=== PATIENT | male | born 1965 | race Caucasian/White ===

== ENCOUNTER 2025-02-25 07:31 | Observation (INO) ==
--- NOTE | 2025-02-25 08:31 | History & Physical Bridge Note ---
Date of Service February 25, 2025 History & Physical Bridge Note I have examined the patient, reviewed the History & Physical and in the interval since the performance of the History & Physical I have noted the following changes of clinical significance: no changes noted
--- NOTE | 2025-02-25 08:36 | Pre Anesthesia Assessment ---
Date of Service February 25, 2025 Pre Sedation Assessment Vital Signs Temp Resp O2 Del Method 02/25/25 07:39 36.7 C 18 Room Air Cardiovascular + regular rate and + bradycardic + S1 normal and + S2 normal; no murmur + femoral pulses present and + radial pulses present; no JVD and no carotid bruit no edema Respiratory + respiratory effort normal; no respiratory distress no crackles, no rales, no rhonchi and no wheezes Pre-Sedation Airway Assessment Smoking Status: Never smoker Hx Sleep Apnea: Yes Short, Thick Neck: No Thyromental Distance: > or= 3.5 Finger Breadths Oral Cavity: + WNL Mallampati Class: III ASA: ASA3 NPO Status Date of Last Intake of Fluids: 02/25/25 Time of Last Intake of Fluids: 05:00 Date of Last Intake of Solid Food: 02/24/25 Time of Last Intake of Solid Foods: 17:00 Procedure Planning Contraindications for Sedation: none Current Medications Reviewed: Yes Notes The planned sedation has been discussed with the patient. Informed Consent was obtained. I have identified the patient, determined the appropriateness of sedation and have assessed the patient immediately prior to the procedure. All medicine(s) and interventions are by my order.
--- NOTE | 2025-02-25 10:02 | Post Anesthesia Assessment ---
Date of Service February 25, 2025 Post Sedation Assessment Vital Signs Temp Resp O2 Del Method 02/25/25 07:39 36.7 C 18 Room Air Recovery Score Activity: Moves 4 extremities Respiration: Deep Breath/Cough Circulation: +/-20% PreAnes Value Consciousness: Fully Awake Oxygen Saturation: > 92% On Room Air Discharge Sedation Level of Care: Fast Track Phase II Post Sedation Plan On clinical assessment, the patient appears to have tolerated the sedation without complications. Patient is recovering as anticipated. Patient will continue to be monitored by nursing and may be discharged when sedation discharge criteria are met per below protocol. Upon Completions of procedure up to 15 minutes continue every 5 minute vital signs and the P.A.R. score; then discharge to a Phase I or Fast Track to Phase II per the following guidelines: * Discharge Patient to appropriate Phase II area if PAR is 8 or greater or return to pre- procedure baseline. The post - procedure orders will be as directed. * If PAR score is less than 8 or not return to pre-procedure baseline then patient will follow Phase I monitoring till PAR is reached for Phase II. The Phase I may be done in procedure room or may call to secure a Phase I area. * If naloxone or flumazenil are used for reversal, hold in Phase I for continued monitoring from when last reversal dose was given for a minimum of 60 minutes or longer pending the nurse and/or physician discretion of patient condition before discharge to Phase II. Please call the Sedation Physician to re-evaluate and complete post-note for discharge to Phase II area. Do NOT discharge from procedure sedation or Phase 1 until post- sedation evaluation note is complete by procedure /sedation MD Sedation Discharge Instructions to be given to the patient at discharge to home.
--- NOTE | 2025-02-25 10:06 | Cardiac Catheterization ---
Cardiac Cath Procedure Full Procedure Date February 25, 2025 Pre-Procedure Diagnosis Pre-Procedure Diagnosis: Angina and Positive Stress Test AUC Score AUC Score: 7 Post-Procedure Diagnosis Post-Procedure Diagnosis: Severe CAD and Elevated Intracardiac Pressures (LVEDP 17mmHg) Procedure(s) Performed Procedure(s) Performed: Coronary Angiography and Left Heart Cath Psychiatric Np Uriel Mendenhall DO Computer Designer(s) Donis RT Estimated Blood Loss Estimated Blood Loss: 8cc Medication(s) Medication(s): Fentanyl, Lidocaine 1%, Nicardipine, Nitroglycerin and Versed Summary of Findings 40% proximal LAD 60-70% mid LAD 99% mid RCA with THAO 2 flow, right to right and left to right collaterals Hemodynamics Rest Ao:: 103/59/99 Final Ao: 112/62/83 LV: 108/4/17 Recommendations Recommendations: Management Recommendatons (IFR, FFR, and or IVUS evaluation of LAD. Interventional cardiology recommends medical management of RCA stenosis. Refer to tertiary care for PCI of [employer] RCA.) Radiation Exposure (mGy) 1132 Contrast (mls) 40 Fluids (cc crystalloids) Fluids (cc crystalloids): 500cc pre-cath Drains Drains: N/A Anesthesia Moderate sedation. Start 0910. End 0951. Sedation monitor: Maik LEUNG Procedural Complication(s) None Disposition Patient remained in [facility] for further evaluation of LAD stenosis. I attest to the content of the Intraoperative Record and any orders documented therein. Any exceptions are noted below. ACC Data: [facility] Cardiac Status Clinical evaluation leading to the procedure 60-year-old male presents for outpatient exercise stress echo with evidence of inferior ischemia. Reporting chest discomfort on daily basis. CAD Presenation: Positive Stress Test Anginal Classification: CCS II Heart Failure: No Stress Studies Past 6 Months: Yes Stress Echocardiogram: Yes - Positive and Risk/Extent of Ischemia (High) Coronary Anatomy Dominant: Co-Dominant Left Main (% Stenosis): Normal LAD (% Stenosis): Proximal (40% (IFR 0.97) moderate calcification) and Mid (60- 70%, moderate calcification) D1 (% Stenosis): Normal (small vessel) D2 (% Stenosis): Normal (small vessel) Circumflex (% Stenosis): Proximal (10%) and Distal (Supplies [id number] collaterals) OM1 (% Stenosis): Normal (small vessel) OM2 (% Stenosis): Normal L PL1 (% Stenosis): Proximal (10%) L PL2 (% Stenosis): Normal (small vessel) L PDA (% Stenosis): Normal (Diminutive (1mm)vessel) RCA (% Stenosis): Mid (99% with THAO 2 flow, followed by 50% late-mid stenosis) R PDA (% Stenosis): Normal (THAO 2 flow) R PL1 (% Stenosis): Normal (THAO 2 flow) AM (% Stenosis): Normal (Supplies right to right collaterals) Diagnostic Physicians Name: Uriel Mendenhall DO Closure Device Percutaneous Entry Location: Radial (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 Femoral access with 5F sheath obtained.) Recommendations: Management Recommendatons (IFR, FFR, and or IVUS evaluation of LAD. Interventional cardiology recommends medical management of RCA stenosis. Refer to tertiary care for PCI of [employer] RCA.) Intraprocedure Events Significant Disection: No Perforation: No
[2025-02-25] MEDS: MIDAZOLAM HCL 1 MG/ML 2ML VIAL ONE ×2 (11:00→11:01)
[2025-02-25] MEDS: HEPARIN (PORCINE) 1000 UNIT/ML 10 ML (CATH LAB USE ONLY) ONE ×2 (11:00→11:04)
[2025-02-25] MEDS: fentaNYL citrate PF 100 MCG/2 ML VIAL ONE (11:00)
[2025-02-25] MEDS: OPTIRAY 350 ONE (11:01)
[2025-02-25] MEDS: NITROGLYCERIN/D5W 100MCG/ML 20ML SYR ONE (11:01)
[2025-02-25] MEDS: LIDOCAINE 1% LOCAL 20 ML VIAL ONE (11:01)
[2025-02-25] MEDS: TICAGRELOR 90 MG TAB ONE (11:04)
[2025-02-25] MEDS: ISOSORBIDE MONO EXTENDED REL 30 MG TABCR PO SCH (17:24)
[2025-02-25] MEDS: TICAGRELOR 90 MG TAB PO SCH (20:49)
[2025-02-26 07:48] VITALS: TEMP 98.4; O2SAT 94
[2025-02-26] MEDS: EZETIMIBE 10 MG TAB PO SCH (08:15)
[2025-02-26] MEDS: ASPIRIN 81 MG ECTAB PO SCH (08:15)
[2025-02-26 10:46] VITALS: BP 102/44; PULSE 71; RESP 20
[2025-02-26 11:11] LABS: Calcium 8.8 mg/dl (8.6-10.3); Potassium 3.9 mmol/L (3.5-5.1)
[2025-02-26 11:16] LABS: BUN Creatinine Ratio 13.8 (10-20); Creatinine Clr Calc Pharmacy 60.5 ml/min
[2025-02-26] MEDS ORDERED: NITROGLYCERIN SL 0.4 MG/TAB TAB SL PRN (11:28)
[2025-02-26] MEDS: POTASSIUM CHLORIDE CRTAB 20 MEQ TABCR PO STA (11:40)
--- NOTE | 2025-02-26 12:36 | Cardiology Progress Note ---
Date of Service February 26, 2025 Assessment & Plan (1) Status post insertion of drug-eluting stent into left anterior descending (LAD) artery: (2) RCA occlusion: (3) Sinus bradycardia: (4) Dyslipidemia, goal LDL below 70: (5) Statin intolerance: Plan 60-year-old male presented for cardiac catheterization 02/25/2025 secondary to abnormal stress echo suggesting inferior ischemia. Moderate mid LAD stenosis assessed with IFR, however, a small dissection occurred with use of the IFR wire. Subsequently, LAD was stented with a drug-eluting stent. 99% chronic occlusion of the right coronary artery visualized with right to left and left to left collaterals. Medical management recommended by interventional cardiology during this admission. I reviewed the films with interventional cardiology at tertiary care facility, [facility]. Patient scheduled for intervention of the right coronary artery with Dr. Ortez. Continue dual antiplatelet therapy uninterrupted at this time. Statin intolerance documented. Continue Zetia. Unable to add beta-felicity therapy due to chronic resting bradycardia. Patient tolerating isosorbide monohydrate 30 mg daily. Continue at discharge. Provided with a prescription for sublingual nitroglycerin and instructed regarding appropriate use. He will to be discharged home today. Close follow-up in 2 weeks as scheduled. Admission and Anticipated Discharge Date Admission Date: February 25, 2025 Subjective 60-year-old male seen at bedside. Feeling well this morning. No recurrent chest discomfort. Blood pressure remains borderline hypotensive. Tolerating isosorbide monohydrate. Minimal headache reported. Anxious for discharge. Offers no other concerns/complaints. Repeat ECG this a.m. within normal limits. Creatinine stable at baseline of 1.52. Review of Systems Review of Systems: All systems reviewed & are unremarkable except as noted in Subjective Physical Exam Constitutional: well nourished; no acute distress Respiratory: no respiratory distress, no labored breathing and no retractions Auscultation: no crackles, no rales, no rhonchi and no wheezes Cardiovascular: Rate/Rhythm: regular rate and + bradycardic Heart Sounds: normal S1 and normal S2; no murmur Vessels: femoral pulses present and radial pulses present; no JVD and no carotid bruit Extremities: no edema Gastrointestinal (Abdomen): Inspection/Auscultation: normal bowel sounds; abdomen not distended Percussion/Palpation: abdomen soft; abdomen nontender, no guarding and abdomen not rigid Neurologic: CN's II-XI intact bilaterally and moves all extremities Psychiatric: A+Ox3, euthymic affect Results & Data Vital Signs (Past 12 Hours) Vital Signs Temp Pulse Pulse Resp BP Pulse Ox O2 Del Method 02/26/25 10:45 36.9 C 71 20 102/44 L 94 Room Air 02/26/25 07:46 36.9 C 54 L 17 111/66 94 Room Air 02/26/25 07:18 68 02/26/25 02:45 36.6 C 53 L 18 102/60 96 CPAP Laboratory Results Comprehensive Metabolic Panel 02/26/25 Range/Units 10:38 Sodium 138 (136-145) mmol/L Potassium 3.9 (3.5-5.1) mmol/L Chloride 107 (98-107) mmol/L Carbon Dioxide 26 (21-32) mmol/L BUN 21 (6-23) mg/dl Creatinine 1.52 H (0.6-1.4) mg/dl Glucose 91 (70-99(Fasting)) mg/dl Calcium 8.8 (8.6-10.3) mg/dl Intake and Output 02/25/25 02/26/25 02/26/25 22:59 06:59 14:59 Intake Total 200 / 400 200 / 400 Balance 200 / 400 200 / 400 Intake: Oral 200 / 400 200 / 400 Other: Weight 99.3 kg Weight Measurement Method Built in [facility]
--- NOTE | 2025-02-26 12:59 | Discharge Summary ---
Date of Service February 26, 2025 Admission HPI Per Admitting Provider Patient presented for cardiac catheterization secondary to abnormal stress echo demonstrating inferior ischemia and chest discomfort. 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 99% RCA occlusion Discharge Exam Constitutional well nourished; no acute distress ENMT Mallampati Class: III Respiratory normal respiratory effort; no respiratory distress, no labored breathing and no retractions Auscultation: no crackles, no rales, no rhonchi and no wheezes Cardiovascular Rate/Rhythm: regular rate and + bradycardic Heart Sounds: normal S1 and normal S2; no murmur Vessels: femoral pulses present and radial pulses present; no JVD and no carotid bruit Extremities: no edema Gastrointestinal (Abdomen) Inspection/Auscultation: normal bowel sounds; abdomen not distended Percussion/Palpation: abdomen soft; abdomen nontender, no guarding and abdomen not rigid Neurologic CN's II-XI intact bilaterally and moves all extremities Psychiatric A+Ox3, euthymic affect Discharge Data Allergies Allergy/AdvReac Type Severity Reaction Status Date / Time lisinopril Allergy Swelling Verified 02/25/25 07:49 of Lip/Tongue/Throat simvastatin Allergy Swelling Verified 02/25/25 07:49 of Lip/Tongue/Throat Procedures Performed Operation Date: 02/25/25 09:30 Actual Procedures p Cineradiography w/Routine Exam - Uriel Mendenhall DO p Cath, Left with Cors and Vent - Uriel Mendenhall DO s Drug Eluting Stent SGl Vessel - Yury Mcfarlane MD, PhD s IVUS Coronary Single Vessel - Yury Mcfarlane MD, PhD Ordered Studies 02/25/25 06:50 CL Cath Imgs for PACS use only Routine 02/25/25 10:37 CL IVUS Coronary Single Vessel Routine Hospital Course (1) Status post insertion of drug-eluting stent into left anterior descending (LAD) artery: (2) RCA occlusion: (3) Sinus bradycardia: (4) Dyslipidemia, goal LDL below 70: (5) Statin intolerance: Plan 60-year-old male presented for cardiac catheterization 02/25/2025 secondary to abnormal stress echo suggesting inferior ischemia. Moderate mid LAD stenosis assessed with IFR, however, a small dissection occurred with use of the IFR wire. Subsequently, LAD was stented with a drug-eluting stent. 99% chronic occlusion of the right coronary artery visualized with right to left and left to left collaterals. Medical management recommended by interventional cardiology during this admission. I reviewed the films with interventional cardiology at tertiary care facility, [facility]. Patient scheduled for intervention of the right coronary artery with Dr. Ortez. Continue dual antiplatelet therapy uninterrupted at this time. Statin intolerance documented. Continue Zetia. Unable to add beta-felicity therapy due to chronic resting bradycardia. Patient tolerating isosorbide monohydrate 30 mg daily. Continue at discharge. Provided with a prescription for sublingual nitroglycerin and instructed regarding appropriate use. He will to be discharged home today. Close follow-up in 2 weeks as scheduled. Total Time Total Time Spent Total Time Spent (In Minutes): 40 Discharge Plan Discharge Items Patient Disposition: Home - Self-Care Reason For Visit: ANGINA, ABNORMAL STRESS Discharge Diagnosis: CAD s/p PCI Condition on Discharge: Good Health Concerns: Coronary artery disease Right coronary artery 99% occlusion Stent implanted to left anterior descending coronary artery Activity: Per Instructions section Non-emergency contact: Primary Care Provider and Chef Call non-emergency contact if: you have any medication questions, your symptoms worsen, your pain is not controlled, you have a fever, your wound has increased redness and your wound has increased drainage Follow-up/Referrals: Bryon Franz M.D. [Primary Care Provider] - Diet: Heart Healthy [facility] Attending Provider Instructions: ACTIVITY RECOMMENDATIONS: It is common to feel weak and fatigue for a few days. * Do not drive or operate any motorized equipment for the next three days. * Limit stair usage (2 or 3 trips a day only) for the next three days. * Do not lift anything heavier than 10 pounds for the next three days. * Do not engage in vigorous exercise or any sports for the next five days. * You may shower the day after your procedure, but do not immerse the area for three days. Cleanse the site gently with soap and water. SPECIAL CARE INSTRUCTIONS: * You may replace the pressure dressing or band-aid the morning after the procedure. * After your procedure, it is normal to have a small bruise or small lump at the site. Examine your site daily for any change in the bruise or lump, redness, swelling, drainage or numbness. Notify your doctor if any change. BLEEDING: * If there is a small amount of bleeding at the site, lie down and apply firm pressure with a clean cloth for ten minutes. When the bleeding stops, lie quietly keeping the procedure limb straight for six hours. Notify your doctor as soon as possible. * If the bleeding does not stop after ten minutes or if there is a large amount of bleeding or spurting, call 911 immediately. Continue to lie down and hold firm pressure until help arrives. SKIN IRRITATION: * You may experience some redness and/or swelling in the area where radiation was administered. If any skin irritation occurs, please contact your family physician. FOLLOW UP VISIT: Keep any scheduled doctor appointments. Addtl Bottom Turning Lathe Tender Provider Instructions: Prescriptions for Brilinta, isosorbide monohydrate, and [facility]lingual [facility] in [place]. Pending Studies at Discharge: No Stand-Alone Forms: [facility] [employer], Work/School Release, Smoking Cessation Medications and DC Order Prescriptions: New isosorbide mononitrate 30 mg Tablet Extended Release 24 Hr 30 mg PO QAM 34 Days Qty: 34 6RF nitroglycerin [Nitrostat] 0.4 mg Tablet, Sublingual 0.4 mg sublingual Q5M Qty: 1 4RF ticagrelor [Brilinta] 90 mg Tablet 90 mg PO BID Qty: 60 6RF Continued omeprazole 40 mg Capsule,Delayed Release(Dr/Ec) 40 mg PO DAILY aspirin 81 mg Capsule,Delayed Release(Dr/Ec) 81 mg PO DAILY ezetimibe [Zetia] 10 mg Tablet 10 mg PO DAILY Discharge Orders: Discharge Order (Routine); Ordered 02/26/25 Ordered By: Uriel Mendenhall Admission Data Admit Date/Time: 02/25/25 10:59 Attending Provider: Uriel Mendenhall Admit Provider: Yury Mcfarlane Primary Care Provider: Bryon Franz
--- NOTE | 2025-02-26 17:00 | Electrocardiogram Report ---
Test Reason : Blood Pressure : */* mmHG Vent. Rate : 64 BPM Atrial Rate : 64 BPM P-R Int : 186 ms QRS Dur : 84 ms QT Int : 410 ms P-R-T Axes : 51 48 30 degrees QTcB Int : 422 ms Normal sinus rhythm Normal ECG No previous ECGs available Confirmed by John Monson ([id number]) on 02/26/2025 4:59:49 PM Referred By: Uriel Mendenhall Confirmed By: John Monson
--- NOTE | 2025-02-27 16:58 | Cardiac Catheterization ---
[facility] Data: [facility] Cardiac Status Clinical evaluation leading to the procedure CAD Presenation: Positive Stress Test and Stable angina Anginal Classification: CCS III Heart Failure: No Cardiogenic Shock within 24 Hours: No Cardiac Arrest within 24 Hours: No Imaging Studies Past 6 Months: Yes Stress Studies Past 6 Months: Yes Coronary Anatomy Dominant: Left (See diagnostic report for details) Diagnostic Physicians Name: Yury Mcfarlane MD, PhD Closure Device Percutaneous Entry Location: Femoral and radial Closure Device: Angio-Seal and Radial Band Recommendations: PCI without planned CABG PCI Indication: Stable Angina Lesion Segment Name: Mid LAD Culprit Artery: Yes Stenosis Prior to Rx (%): 60 to 70% Chronic Total Occlusion: No Pre-Procedure THAO Flow: 1 Previously Treated Lesion: No Lesion Complexity: High/C Lesion Length (mm): 15 Thrombus Present: No Bifurcation Lesion: No Guidewire Across Lesion: Yes Intraprocedure Events Significant Disection: No (Minor dissection treated with stent) Perforation: No Cardiac Cath Procedure Full Procedure Date February 25, 2025 Pre-Procedure Diagnosis Pre-Procedure Diagnosis: Angina and Positive Stress Test AUC Score AUC Score: 7 Post-Procedure Diagnosis Post-Procedure Diagnosis: Severe CAD and Successful PCI Procedure(s) Performed Procedure(s) Performed: Drug Eluting Stent, IVUS and Fractional Flow [employer] Yury Mcfarlane MD, PhD Remelt Worker(s) Donis WRIGHT Estimated Blood Loss Estimated Blood Loss: 8cc Medication(s) Medication(s): Fentanyl, Heparin and Versed Summary of Findings Brief description: Patient was already on the cardiac catheterization table. He had been sedated by Dr. Mendenhall. He had just completed diagnostic coronary angiography initially attempted from the radial artery approach but then performed via the femoral artery approach. He had a 5 [place] femoral artery sheath in place. Decision was made to perform IFR analysis of the LAD. 5 [place] EBU 3.5 guide catheter was used to engage the left main coronary. Through this, a Omni Doppler wave wire was advanced and positioned with its transducer just distal to the guide catheter tip. Patient was provided IV heparin. ACT was intermittently checked and additional heparin provided as needed. The catheter was flushed with normal saline and the pressures were equalized. Guidewire was advanced down the LAD such that the transducer was distal to the proximal lesion. iFR was sampled twice. We next attempted to advance the guidewire further past the lesion in the mid LAD. However, it was very difficult to advance the wire and upon angiography there appeared to be small dissection contained at the tightest portion of the lesion. Therefore, the Doppler wave wire was removed and we decided to proceed with PCI. The 5 [place] EBU 3.5 guide catheter was exchanged over the wire for a 6 [place] EBU 3.5 guide catheter. Through this, a BMW versa guidewire was advanced and positioned distally in the LAD. Lesion was predilated with a 2.5 x 12 mm trek balloon with 2 inflations up to 12 any. A 2.5 x 18 mm [place] drug-eluting stent was then advanced and positioned across the lesion as well as the dissection where it was deployed at 13 any. Second inflation was performed to 14 any. The balloon was removed and angiography was performed. Because of persistent dye outside of the stent decision was made to post dilate. A 2.5 x 6 mm [place] Mohan balloon was advanced and positioned within the stent. Inflation was done 3 times up to 17 and then 18 any. Balloon was removed and angiography was again performed. An IVUS catheter was then inserted over the wire to better visualize stent apposition as well as the persistent flow of contrast outside the stent. (See IVUS findings) A 2.75 x 8 mm NC Mohan was not advanced and positioned within the stent. The whole stent was postdilated 3 times up to 16 any. The balloon was then removed. The IVUS catheter was reinserted and imaging was again performed to evaluate the stent apposition and dissected area. Things appeared stable so the IVUS catheter was removed. Patient was hemodynamically stable and without symptoms or EKG changes. Final angiographic evaluation was performed and then the guide catheter was removed along with the guidewire. Limited right femoral artery angiography was performed to evaluate for closure. Findings were favorable, therefore, the femoral artery sheath was exchanged for a 6 [place] Angio-Seal closure device. This was deployed in the recommended fashion. We obtained immediate hemostasis and the patient remained hemodynamically stable. The radial sheath was then removed and hemostasis was obtained using the TR band. Patient was then returned to the recovery area. This ended the case. IFR findings: 0.97, 0.97. Therefore, the proximal lesion is not hemodynamically stable. Probable small wire dissection at the mid vessel plaque. This appeared contained. IVUS of stented segment. Small area of dissection noted behind the midportion of the stent with small amount of flow. The proximal and distal portions of the stent are well opposed. There is significant calcium particularly proximally. PCI of LAD: Successful implantation of a drug-eluting stent. Dissection contained within the stented segment No evidence of perforation post PCI THAO-3 flow post PCI Hemodynamics Rest Ao:: 115/63 mmHg Final Ao: 151/75 mmHg LV: Not performed Recommendations Recommendations: PCI without planned CABG Radiation Exposure (mGy) 3911 mGy, fluoroscopy time 29.1 min (total diagnostic plus intervention) Contrast (mls) 180 cc Drains Drains: N/A Anesthesia 4 mg Versed, 75 mcg fentanyl IV. Start time 0951, end 1057 Procedural Complication(s) Small wire induced dissection during IFR. Successful treatment with stenting. Disposition [facility] Holding/Recovery I attest to the content of the Intraoperative Record and any orders documented therein. Any exceptions are noted below. [facility] Card Cath Procedure Codes Cardiac Catheterization Procedure 1: Cardiovascular Cath Procedures: 67947 (Doppler) Pressure Wire Therapeutic Services & Ancillary Procedure 1: Cardiovascular Tx and Anc Procedures: 83780 IV Ultrasound (Coronary or Graft) Moderate Sedation Procedure 1: Sedation/Anesthesia: 56187 Mod Sedation by a different physician ;Init15 Min Child Age 5&Up (Initial 15 minutes, start time 0951) Procedure 2: Sedation/Anesthesia: 70080 Mod Sedation by a different physician;Ea Additional 15 Minutes (Additional 51 minutes, end time 1057) Stenting Procedure 1: Cardiovascular Stent Procedures: 43609 Perc transcatheter placement of intracoronary stent(s), with ang PG Care Time/CCT Total # of Minutes Spent Total Time Spent with Patient: Total time spent is greater than 50% in coordination of care (as documented) at patient's floor/unit and/or counseling patient:
== END 2025-02-26 13:50 | disposition home or self-care (01) ==
LOC: CC 07:31 → 4W 07:31